=== PATIENT | male | born 2000 | race Caucasian/White ===

== ENCOUNTER 2021-11-02 14:56 | Emergency (ER) | payer MEDICAID, OTHER ==
[~2021-11-02] VITALS: Ht 172.7 cm; Wt 77.1 kg
[2021-11-02 15:25] VITALS: BP 128/71
[2021-11-02] MEDS ORDERED: IBUP800T27 PO (16:23)
== END 2021-11-02 16:46 | disposition home or self-care (01) ==
LOC: ER 14:56 → EDBD 14:56 → ER 16:46
DX: H91.91 Unspecified hearing loss, right ear (principal); M25.562 Pain in left knee; M25.561 Pain in right knee; J45.909 Unspecified asthma, uncomplicated